=== PATIENT | female | born 1955 ===

== ENCOUNTER 2020-11-08 18:58 | Emergency (ER) | payer MEDICARE, OTHER ==
[2020-11-08] MEDS ORDERED: DILTIAZEM DRIP BOLUS FROM BAG 1 MG SOLN IV ONE ×2 (19:20→19:56)
[2020-11-08] MEDS ORDERED: DIPH,PERTUS(ACELL)TETVAC-LF 0.5 ML VIAL IM ONE (19:21)
[2020-11-08 19:30] LABS: Anisocytosis Slight; Basophils % (A) 0 %; Eosinophils # (A) 0.2 k/uL (0-0.7); Eosinophils % (A) 1 %; HCT 35.7 % (34.0-46.0); HGB 11.3 gm/dL (11.4-16.0); Hypochromasia Moderate; Lymphocytes # (A) 2.7 k/uL (1.0-4.8); Lymphocytes % (A) 14 %; MCH 26.1 pg (25.0-35.0); MCHC 31.8 g/dL (31.0-37.0); MCV 82.1 fL (80.0-100.0); Mean Platelet Volume 8.1; Monocytes # (A) 0.6 k/uL (0-1.0); Monocytes % (A) 3 %; Neutrophils # (A) 15.9 k/uL (1.3-7.7); Neutrophils % (A) 81 %; Platelet Count 239 k/uL (150-450); RBC 4.35 m/uL (3.80-5.40); RDW 16.2 % (11.5-15.5); WBC 19.5 k/uL (3.8-10.6)
[2020-11-08] MEDS ORDERED: DILTIAZEM 125 MG in SODIUM CHLORIDE 0.9% 100 ML IV SCH ×2 (19:30→20:00)
[2020-11-08 19:40] LABS: ALT 48 U/L (4-34); AST 78 U/L (14-36); African American GFR (CKD) 45 (>60 ml/min/1.73 sqM); Albumin 3.8 g/dL (3.5-5.0); Alcohol <10 mg/dL; Alkaline Phosphatase 102 U/L (38-126); Anion Gap 11 mmol/L; Blood Urea Nitrogen 36 mg/dL (7-17); Calcium 9.4 mg/dL (8.4-10.2); Carbon Dioxide 25 mmol/L (22-30); Chloride 101 mmol/L (98-107); Creatine Kinase 274 U/L (30-135); Glucose 321 mg/dL (74-99); Non-African American GFR(CKD) 39 (>60 ml/min/1.73 sqM); Potassium 3.7 mmol/L (3.5-5.1); Sodium 137 mmol/L (137-145); Total Bilirubin 0.5 mg/dL (0.2-1.3)
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
[2020-11-08 19:49] LABS: Partial Thromboplastin Time 22.1 sec (22.0-30.0)
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
[2020-11-08 20:01] VITALS: RESP 18
[2020-11-08 20:03] LABS: Glucose,Whole Blood 263 mg/dL (75-99)
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
--- NOTE | 2020-11-08 21:03 | XR ---
EXAMINATION TYPE: XR hand complete RT DATE OF EXAM: 11/08/2020 COMPARISON: NONE HISTORY: Pain and swelling TECHNIQUE: 3 views FINDINGS: Metacarpals are intact. There is narrowing of the IP joint spaces with spur formation. Carp al bones are intact. There is evidence of an acute nondisplaced transverse fracture distal radial metaphysis. There is spu rring at the first carpometacarpal joint. IMPRESSION: Acute nondisplaced distal radius fracture. Soft tissue swelling on the dorsum of the hand and wrist.
--- NOTE | 2020-11-08 21:05 | XR ---
EXAMINATION TYPE: XR wrist complete RT DATE OF EXAM: 11/08/2020 COMPARISON: NONE HISTORY: Wrist pain TECHNIQUE: 4 views FINDINGS: There is slightly impacted acute transverse fracture distal radial metaphysis. There is no dislocation. Carpal bones are intact. There is mild to moderate osteoarthritis at the first carpometa carpal joint. There is nondisplaced transverse fracture across the base of the third metacarpal. Dist al ulna is intact. IMPRESSION: Acute transverse fracture distal radius. Acute nondisplaced fracture base of the third me tacarpal.
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
[2020-11-08] MEDS ORDERED: ONDANSETRON 4 MG/2 ML VIAL IVP STA (21:19)
[2020-11-08] MEDS ORDERED: fentaNYL (PF) 50 MCG/ML 2 ML AMP IVP PRN (21:32)
[2020-11-08 22:06] VITALS: BP 98/57; PULSE 104; TEMP 98.2
== END 2020-11-08 22:05 | disposition other institution (70) ==
LOC: EC 18:58
DX: S72.402A Unspecified fracture of lower end of left femur, initial encounter for closed fracture (principal); S20.212A Contusion of left front wall of thorax, initial encounter; S22.32XA Fracture of one rib, left side, initial encounter for closed fracture; S36.039A Unspecified laceration of spleen, initial encounter; I48.91 Unspecified atrial fibrillation; I95.9 Hypotension, unspecified; R00.0 Tachycardia, unspecified; D64.9 Anemia, unspecified; E66.9 Obesity, unspecified; Z79.82 Long term (current) use of aspirin; Z79.899 Other long term (current) drug therapy; Z23 Encounter for immunization; Z68.41 Body mass index [BMI] 40.0-44.9, adult; V53.6XXA Passenger in pick-up truck or van injured in collision with car, pick-up truck or van in traffic accident, initial encounter; Y92.410 Unspecified street and highway as the place of occurrence of the external cause
CPT/HCPCS: 93005; 86900; 86901; 80053; 82550; 83605; 84484; 85025; 85610; 85730; 86850; 86920; 73590; 72170; 73551; 73552; 73110; 73130; 71045; 72125; 70450; 71260; 74177; 90715; 99291; 96365; 96366; 96375 ×3; 90471; 29505; P9016; G0480; J2405; J3010; Q9967; 80320